=== PATIENT | male | born 1970 | race Caucasian/White ===

== ENCOUNTER 2024-05-21 10:08 | Emergency (ER) | payer OTHER, BC ==
[2024-05-21] MEDS: Insulin Regular, Human 100 Units/ML 10 ML Vial SUBCUT ONE ×2 (10:41→12:14)
[2024-05-21] MEDS: Sodium Chloride 0.9% 1,000 ML IV ONE (10:41)
[2024-05-21 10:46] LABS: GLUCOSE RANDOM 394 mg/dL (80-116)
[2024-05-21 10:48] LABS: BASOPHILS PERCENT AUTO 0.2 % (0.3-3.8); EOSINOPHILS PERCENT AUTO 0.4 % (0.1-6.8); HEMATOCRIT 45.5 % (38.3-50.1); HEMOGLOBIN 15.4 g/dL (12.9-17.7); LYMPHOCYTES ABSOLUTE AUTO 1.5 x10-3/uL (0.5-4.5); LYMPHOCYTES PERCENT AUTO 15.2 % (15.8-45.3); MEAN CORPUSCULAR HEMOGLOBIN 29.4 pg (27.0-33.3); MEAN CORPUSCULAR HGB CONC 33.9 g/dL (28.7-35.3); MEAN CORPUSCULAR VOLUME 86.8 fL (80.8-98.7); MEAN PLATELET VOLUME 9.1 fL (6.7-11.0); MONOCYTES ABSOLUTE AUTO 0.5 x10-3/uL (0.0-1.2); MONOCYTES PERCENT AUTO 5.1 % (5.5-15.2); NEUTROPHILS ABSOLUTE AUTO 7.9 x10-3/uL (1.7-6.9); NEUTROPHILS PERCENT AUTO 79.1 % (40.3-71.8); PLATELET COUNT,PLT 205 x10(3)uL (117-477); RED BLOOD CELL COUNT 5.24 x10(6)uL (3.90-5.90); WHITE BLOOD CELL COUNT,WBC 9.9 x10-3/uL (3.2-10.1)
[2024-05-21 11:34] LABS: HEMOGLOBIN A1C 9.9 % (<5.7)
[2024-05-22 17:38] LABS: ALANINE AMINOTRANSFERASE,ALT 60 U/L (12-36); ALKALINE PHOSPHATASE 122 IU/L (56-112); ASPARTATE AMNIOTRANSFERASE,AST 40 IU/L (5-25); BILIRUBIN TOTAL 0.7 mg/dL (0.1-1.3)
[2024-05-22 17:39] LABS: A/G RATIO 1.7; CALCIUM 10.1 mg/dL (8.6-10.2)
[2024-05-22 17:40] LABS: ESTIMATED GFR 91 mL/min (>60)
[2024-05-22 17:41] LABS: BLOOD UREA NITROGEN,BUN 21 mg/dL (7-18); CARBON DIOXIDE,CO2 14 mmol/L (21-32); CHLORIDE,CL 112 mmol/L (100-110); POTASSIUM,K 5.8 mmol/L (3.5-5.3); SODIUM,NA 145 mmol/L (135-145)
== END 2024-05-21 12:30 | disposition home or self-care (01) ==
LOC: FB.ED 10:08
DX: E86.0 Dehydration (principal); T67.1XXA Heat syncope, initial encounter; E11.65 Type 2 diabetes mellitus with hyperglycemia; Z88.8 Allergy status to other drugs, medicaments and biological substances; Z79.4 Long term (current) use of insulin
CPT/HCPCS: 36415; 80053; 82947; 83036; 83605; 84484; 85025; 93005; 96360; 99285; A9270; J7030; 93010; 99284